=== PATIENT | female | born 1950 | race Caucasian/White ===

== ENCOUNTER 2016-08-18 14:22 | Outpatient (CLI) ==
[2012-11-25 12:50] VITALS: TEMP 98.5
[2013-11-07 18:28] VITALS: BMI 51.2
[2016-08-18 19:06] LABS: FLU INTERNAL QC INTERNAL QC VALID; RAPID FLU A NEGATIVE (NEGATIVE); RAPID FLU B NEGATIVE (NEGATIVE)
== END 2016-08-18 14:23 | disposition home or self-care (01) ==
LOC: LAB 14:22
PROVIDERS: ATTEND General Practice
DX: J02.9 Acute pharyngitis, unspecified (principal); R05 Cough; R50.9 Fever, unspecified
CPT/HCPCS: 36415; 84145; 87651; 87804; 87880

== ENCOUNTER 2016-08-28 08:43 | Outpatient (CLI) ==
[2012-11-25 12:50] VITALS: TEMP 98.5
[2013-11-07 18:28] VITALS: BMI 51.2
[2016-08-28 13:52] LABS: BASOPHILS % (AUTO) 0.6 % (0.0-3.0); EOSINOPHILS # (AUTO) 0.3 K/ul (0.0-0.7); EOSINOPHILS % (AUTO) 4.2 % (0.0-7.0); HEMATOCRIT 37.3 % (37.0-47.0); HEMOGLOBIN 12.3 g/dl (12.0-16.0); IMMATURE GRANULOCYTE % (AUTO) 0.6 % (0.0-5.0); LYMPHOCYTES % (AUTO) 31.6 (10.0-50.0); MEAN CORPUSCULAR HEMOGLOBIN 30.4 pg (27.0-31.0); MEAN CORPUSCULAR VOLUME 92.1 fl (81.0-99.0); MONOCYTES # (AUTO) 0.8 K/uL (0.4-2.0); MONOCYTES % (AUTO) 13.4 (0-10); NEUTROPHILS # (AUTO) 3.1 K/ul (2.0-6.9); NEUTROPHILS % (AUTO) 49.6; PLATELET COUNT 330 10^3/uL (140-440); RED BLOOD COUNT 4.05 10^6/ul (4.20-5.40); WHITE BLOOD COUNT 6.18 K/ul (4.6-10.2)
[2016-08-28 14:13] LABS: BILIRUBIN,URINE Negative (NEGATIVE); KETONES,URINE Negative (NEGATIVE); LEUKOCYTE ESTERASE ,URINE Negative (NEGATIVE); NITRITE,URINE Negative (NEGATIVE); PROTEIN,URINE Negative (NEGATIVE); URINE, BLOOD Negative (NEGATIVE)
[2016-08-28 14:15] LABS: ADD URINE MICROSCOPIC NO
[2016-08-28 14:21] LABS: ALBUMIN 3.2 g/dL (3.4-5.0); ALBUMIN/GLOBULIN RATIO 0.94; ANION GAP 13.9; BILIRUBIN,TOTAL 0.4 mg/dL (0.00-1.20); BUN/CREATININE RATIO 18.42; CALCIUM 9.2 mg/dL (8.2-10.2); CHOL/HDL RATIO 4.3 (4.5-5.5); CREATININE 0.76 mg/dL (0.60-1.30); POTASSIUM 3.9 mmol/L (3.5-5.10); TOTAL PROTEIN 6.6 g/dL (5.8-8.1)
== END 2016-08-28 08:44 | disposition home or self-care (01) ==
LOC: LAB 08:43
PROVIDERS: ATTEND General Practice
DX: E78.5 Hyperlipidemia, unspecified (principal); E88.81 Metabolic syndrome and other insulin resistance; I10 Essential (primary) hypertension; R73.03 Prediabetes; Z68.43 Body mass index [BMI] 50.0-59.9, adult; Z79.899 Other long term (current) drug therapy
CPT/HCPCS: 36415; 80053; 80061; 81001; 83036; 83525; 85025

== ENCOUNTER 2017-05-21 13:12 | Outpatient (CLI) ==
[2012-11-25 12:50] VITALS: TEMP 98.5
[2013-11-07 18:28] VITALS: BMI 51.2
[2017-05-21 13:32] LABS: BASOPHILS % (AUTO) 0.7 % (0.0-3.0); EOSINOPHILS # (AUTO) 0.3 K/ul (0.0-0.7); EOSINOPHILS % (AUTO) 5.3 % (0.0-7.0); HEMOGLOBIN 13.5 g/dl (12.0-16.0); IMMATURE GRANULOCYTE % (AUTO) 0.2 % (0.0-5.0); LYMPHOCYTES # (AUTO) 1.4 K/uL (0.60-3.4); LYMPHOCYTES % (AUTO) 24.5 (10.0-50.0); MEAN CORPUSCULAR HEMOGLOBIN 30.9 pg (27.0-31.0); MEAN CORPUSCULAR HGB CONC 33.8 (31.8-35.4); MEAN CORPUSCULAR VOLUME 91.5 fl (81.0-99.0); MONOCYTES # (AUTO) 0.5 K/uL (0.4-2.0); MONOCYTES % (AUTO) 8.3 (0-10); NEUTROPHILS # (AUTO) 3.5 K/ul (2.0-6.9); PLATELET COUNT 246 10^3/uL (140-440); RED BLOOD COUNT 4.37 10^6/ul (4.20-5.40); WHITE BLOOD COUNT 5.67 K/ul (4.6-10.2)
[2017-05-21 13:39] LABS: ADD URINE MICROSCOPIC NO; BILIRUBIN,URINE Negative (NEGATIVE); KETONES,URINE Negative (NEGATIVE); LEUKOCYTE ESTERASE ,URINE Negative (NEGATIVE); NITRITE,URINE Negative (NEGATIVE); PROTEIN,URINE Negative (NEGATIVE); URINE, BLOOD Negative (NEGATIVE)
[2017-05-21 14:22] LABS: ALBUMIN 3.4 g/dL (3.4-5.0); ALBUMIN/GLOBULIN RATIO 0.87; ANION GAP 12.8; BILIRUBIN,TOTAL 0.49 mg/dL (0.00-1.20); BUN/CREATININE RATIO 19.76; CALCIUM 9.5 mg/dL (8.2-10.2); CHOL/HDL RATIO 4.1 (4.5-5.5); CREATININE 0.86 mg/dL (0.60-1.30); POTASSIUM 4.8 mmol/L (3.5-5.10); TOTAL PROTEIN 7.3 g/dL (5.8-8.1)
== END 2017-05-21 13:13 | disposition home or self-care (01) ==
LOC: LAB 13:12
PROVIDERS: ATTEND General Practice
DX: E78.5 Hyperlipidemia, unspecified (principal); E88.81 Metabolic syndrome and other insulin resistance; I10 Essential (primary) hypertension; I73.9 Peripheral vascular disease, unspecified; R73.03 Prediabetes; Z79.899 Other long term (current) drug therapy
CPT/HCPCS: 36415; 80053; 80061; 81001; 83525; 84443; 85025

== ENCOUNTER 2017-09-10 16:03 | Outpatient (CLI) ==
[2012-11-25 12:50] VITALS: TEMP 98.5
[2013-11-07 18:28] VITALS: BMI 51.2
== END 2017-09-10 16:04 | disposition home or self-care (01) ==
LOC: FCC-LAB 16:03
PROVIDERS: ATTEND General Practice
DX: E78.5 Hyperlipidemia, unspecified (principal); I10 Essential (primary) hypertension; R73.03 Prediabetes; M54.9 Dorsalgia, unspecified
CPT/HCPCS: 81001

== ENCOUNTER 2017-11-05 10:34 | Outpatient (CLI) ==
[2012-11-25 12:50] VITALS: TEMP 98.5
[2013-11-07 18:28] VITALS: BMI 51.2
== END 2017-11-05 10:35 | disposition home or self-care (01) ==
LOC: FCC-LAB 10:34
PROVIDERS: ATTEND General Practice
DX: R73.03 Prediabetes (principal); I10 Essential (primary) hypertension; E78.5 Hyperlipidemia, unspecified; E88.81 Metabolic syndrome and other insulin resistance
CPT/HCPCS: 36415; 80053; 80061; 81001; 85025

== ENCOUNTER 2018-02-11 09:01 | Outpatient (CLI) ==
[2012-11-25 12:50] VITALS: TEMP 98.5
[2013-11-07 18:28] VITALS: BMI 51.2
== END 2018-02-11 09:02 | disposition home or self-care (01) ==
LOC: LAB 09:01
PROVIDERS: ATTEND Psychiatry & Neurology Psychiatry
DX: F33.1 Major depressive disorder, recurrent, moderate (principal); F41.9 Anxiety disorder, unspecified
CPT/HCPCS: 36415

== ENCOUNTER 2018-02-22 11:00 | Outpatient (RCR) ==
[2012-11-25 12:50] VITALS: TEMP 98.5
[2013-11-07 18:28] VITALS: BMI 51.2
== END 2018-02-22 23:59 ==
LOC: NEWBEG 11:00
PROVIDERS: ATTEND Psychiatry & Neurology Psychiatry
DX: F33.1 Major depressive disorder, recurrent, moderate (principal); F41.9 Anxiety disorder, unspecified
CPT/HCPCS: 90792; 90853; 99214

== ENCOUNTER 2018-03-18 13:50 | Emergency (ER) | payer OTHER ==
[2018-03-18 13:55] VITALS: BP 134/78; TEMP 97.9; BMI 49.4
--- NOTE | 2018-03-18 15:06 | CT ---
EXAM: CT of the head without contrast History: Head trauma. Technique: Multiplanar CT images through the head were obtained without the administration of IV con trast Findings: The visualized paranasal sinuses and mastoid air cells are clear in general. No acute poppy varial abnormalities. Intracranially the ventricular and cisternal spaces are normal in size, shape and configuration for a patient of this age. No dominant mass or midline shift. No hydrocephalous. No acute intracranial hemorrhage or abnormal extraaxial fluid collections. Small left frontal scalp hematoma. Impression: 1. No acute intracranial process. 2. Small left frontal scalp hematoma
--- NOTE | 2018-03-18 15:10 | CT ---
Exam: CT cervical spine without intravenous contrast. Comparison: None available. Reason for exam: Injury. FINDINGS: No obvious fracture in the cervical spine. There is multilevel degenerative disease with intervertebral body disc space height loss and osteophyte formation. Grade 1 anterior listhesis of C3 on C4 There is straightening of the cervical lordotic curve. The prevertebral soft tissues are within norm al limits. The dens appears intact. Impression: 1. No obvious fracture in the cervical spine. 2. Grade 1 anterolisthesis of C3 on C4. If clinical concern exists for stability, further evaluation may be performed. 3. Multilevel moderate to severe degenerative disease in the cervical spine with intervertebral body disc space height loss and osteophyte formation. If clinical concern exists for radiculopathy or my elopathy, MRI may be performed for further characterization.
--- NOTE | 2018-03-18 15:24 | DI ---
EXAM: Two views of the left forearm. History: Left forearm trauma. Findings: No acute fracture or dislocation. Joint spaces are relatively preserved. No abnormal poppy cifications or radiopaque foreign bodies. Impression: No acute osseous abnormality.
--- NOTE | 2018-03-18 15:24 | DI ---
EXAM: Four views of the right knee. History: Right knee trauma. Findings: No acute fracture or dislocation. Severe tricompartmental joint space narrowing with joao inal sclerosis and large osteophytes. No radiopaque foreign bodies. Impression: 1. No acute osseous abnormality. 2. Severe tricompartmental osteoarthritis
--- NOTE | 2018-03-18 16:34 | ED.PDOC ---
General ED Provider: Dr. NAATLIE GARCIA Chief Complaint: Fall Stated Complaint: FALL/ HEAD INJURY , KNEE PAIN , FOREARM PAIN Time Seen by Physician: 14:00 Mode of Arrival: Walk-In Information Source: Patient Exam Limitations: No limitations Primary [facility] Nursing and Triage Documentation Reviewed and Agree: Yes Does patient meet sepsis criteria?: No If yes, has appropriate treatment been initiated?: No System Inflammatory Response Syndrome: Not Applicable Sepsis Protocol: For patient's 13 years and over: Temp is 96.8 and below OR 101 and greater Pulse >90 BPM Resp >20/minute Acutely Altered Mental Status Are patient's symptoms suggestive of a new infection, such as: -Pneumonia -Skin, Soft Tissue -Endocarditis -UTI -Bone, Joint Infection -Implantable Device -Acute Abdominal Infection -Wound Infection -Meningitis -Blood Stream Catheter Infection -Unknown Trauma/Injury Complaint Exam - Trauma Complaint/Exam Location of Pain or Injury: Reports: Head, Neck, LUE (FOREARM), RLE (KNEE ) Mechanism of Injury: Reports: Fall Onset/Duration: 2 HRS Symptoms Are: Still present (SEE PHOTOS) Timing of Treatment: Immediate Initial Severity: Mild Current Severity: Mild Character: Reports: Aching Aggravating: Reports: None Associated Signs and Symptoms: Reports: Bruising (FOR HEAD SEE PHOTOS). Denies : LOC, Confusion, Memory loss, Lethargy, Vomiting, Bleeding, Swelling, Extremity disuse, Painful respiration, Hoarseness, Dysphagia, Hemoptysis, Significant blood loss Penetrating Injury Risk Factors: Reports: None Related Surgical History: Reports: None Nexus Low Risk Criteria: No post-midline CS tender, No evidence of intoxicat., No Altered LOC, No focal neuro deficit, No distracting injuries Glascow Coma Scale (see protocol): 15 Compartment Syndrome Risk Factors: Present: Pain Skin Findings: Present: Abrasion, Contusion Differential Diagnoses: Abrasion, Contusions, Fracture, Sprain, Strain Review of Systems - Review Of Systems Constitutional: Reports: No symptoms Eyes: Reports: No symptoms Ears, Nose, Mouth, Throat: Reports: No symptoms Respiratory: Reports: No symptoms Cardiac: Reports: No symptoms GI: Reports: No symptoms : Reports: No symptoms Musculoskeletal: Reports: No symptoms Skin: Reports: No symptoms Neurological: Reports: No symptoms Endocrine: Reports: No symptoms Hematologic/Lymphatic: Reports: No symptoms All Other Systems: Reviewed and Negative Past Medical History - Past Medical History Previously Healthy: Yes Endocrine: Reports: None Cardiovascular: Reports: None Respiratory: Reports: None Hematological: Reports: None Gastrointestinal: Reports: None Genitourinary: Reports: None Neuro/Psych: Reports: None Musculoskeletal: Reports: None Cancer: Reports: None Last Menstrual Period: n/a - Surgical History General Surgical History: Reports: None - Family History Family History: Reports: None - Social History Smoking Status: Former smoker Hx Substance Use: No Alcohol Screening: None Physical Exam - Physical Exam Appearance: Well-appearing, No pain distress, Well-nourished Eyes: MEKHI, EOMI, Conjunctiva clear ENT: Ears normal, Nose normal, Oropharynx normal Respiratory: Airway patent, Breath sounds clear, Breath sounds equal, Respirations nonlabored Cardiovascular: RRR, Pulses normal, No rub, No murmur GI/: Soft, Nontender, No masses, Bowel sounds normal, No Organomegaly Musculoskeletal: Normal strength, ROM intact, No edema, No calf tenderness Skin: Warm, Dry (CONTUSION FOR HEAD , ABRASION LEFT FOREARM) Neurological: Sensation intact, Motor intact, Reflexes intact, Cranial nerves intact, Alert, Oriented Psychiatric: Affect appropriate, Mood appropriate Interpretation - Radiology Interpretation Radiology Interpretation By: Radiologist Radiology Results: No acute changes Critical Care Note - Critical Care Note Total Time (mins): 0 Course - Course Orders, Labs, Meds: Orders Category Date Time Status CT CERVICAL SPINE W/O CONTRAST Stat RADS 03/18/18 14:[address] HEAD W/O CONTRAST Stat RADS 03/18/18 14:36 Completed FOREARM, LEFT 2 VIEWS Stat RADS 03/18/18 14:36 Completed KNEE, RIGHT 4 VIEWS Stat RADS 03/18/18 14:39 Completed Vital Signs: Temp Pulse Resp BP Pulse Ox 03/18/18 13:51 97.9 F 65 20 134/78 96 Departure - Departure Time of Disposition: 16:34 Disposition: HOME SELF-CARE Discharge Problem: Head injury Qualifiers: Encounter type: initial encounter Qualified Code(s): S09.90XA - Unspecified injury of head, initial encounter Sprain of forearm, left Qualifiers: Encounter type: initial encounter Qualified Code(s): S63.502A - Unspecified sprain of left wrist, initial encounter Sprain of right knee Qualifiers: Encounter type: initial encounter Involved ligament of knee: unspecified ligament Qualified Code(s): S83.91XA - Sprain of unspecified site of right knee , initial encounter Instructions: Head Injury (ED), Contusion in Adults (ED) Condition: Good Pt referred to PMD for follow-up: No IPMP verified?: No Additional Instructions: Please call your Family Physician as soon as possible to schedule a follow-up appointment. Allergies/Adverse Reactions: Allergies bacitracin [From Neosporin ([id number])] Adverse Reaction (Verified 03/18/18 13:55) bacitracin zinc [From Neosporin ([id number])] Adverse Reaction (Verified 13:55) Latex, Natural Rubber Adverse Reaction (Verified 03/18/18 13:55) neomycin sulfate [From Neosporin ([id number])] Adverse Reaction (Verified 13:55) polymyxin B [From Neosporin ([id number])] Adverse Reaction (Verified 13:55) Home Medications: Ambulatory Orders Alprazolam [Xanax] 0.5 mg PO BID 11/25/12 Imipramine HCl [Tofranil] 200 mg PO BEDTIME 11/25/12 Bupropion HCl [Wellbutrin Xl] 300 mg PO DAILY 03/18/18 Triamcinolone Acetonide [Kenalog 0.1%] 1 applic TP DIRECTED 03/18/18
== END 2018-03-18 16:43 | disposition home or self-care (01) ==
LOC: ED 13:50
DX: S00.83XA Contusion of other part of head, initial encounter (principal); S63.502A Unspecified sprain of left wrist, initial encounter; S83.91XA Sprain of unspecified site of right knee, initial encounter; M54.2 Cervicalgia; S50.812A Abrasion of left forearm, initial encounter; W19.XXXA Unspecified fall, initial encounter
CPT/HCPCS: 99283

== ENCOUNTER 2018-03-22 11:00 | Outpatient (RCR) | payer OTHER ==
[2012-11-25 12:50] VITALS: TEMP 98.5
[2017-05-21 13:20] VITALS: BMI 51.2
== END 2018-03-24 23:59 ==
LOC: NEWBEG 11:00
PROVIDERS: ATTEND Psychiatry & Neurology Psychiatry
DX: F33.1 Major depressive disorder, recurrent, moderate (principal); F41.9 Anxiety disorder, unspecified
CPT/HCPCS: 90853; 99214

== ENCOUNTER 2018-04-22 10:00 | Outpatient (RCR) ==
[2012-11-25 12:50] VITALS: TEMP 98.5
== END 2018-04-24 23:59 ==
LOC: NEWBEG 10:00
PROVIDERS: ATTEND Psychiatry & Neurology Psychiatry
DX: F33.1 Major depressive disorder, recurrent, moderate (principal); F41.9 Anxiety disorder, unspecified
CPT/HCPCS: 90853; 99213

== ENCOUNTER 2018-06-21 10:00 | Outpatient (RCR) ==
[2012-11-25 12:50] VITALS: TEMP 98.5
== END 2018-06-24 23:59 ==
LOC: NEWBEG 10:00
PROVIDERS: ATTEND Psychiatry & Neurology Psychiatry
DX: F33.1 Major depressive disorder, recurrent, moderate (principal); F41.9 Anxiety disorder, unspecified
CPT/HCPCS: 90853; 99213; 99214

== ENCOUNTER 2018-07-24 10:00 | Outpatient (RCR) ==
[2012-11-25 12:50] VITALS: TEMP 98.5
== END 2018-07-25 23:59 ==
LOC: NEWBEG 10:00
PROVIDERS: ATTEND Psychiatry & Neurology Psychiatry
DX: F33.1 Major depressive disorder, recurrent, moderate (principal); F41.9 Anxiety disorder, unspecified; F43.10 Post-traumatic stress disorder, unspecified
CPT/HCPCS: 90853; 99213

== ENCOUNTER 2018-08-21 10:00 | Outpatient (RCR) ==
[2012-11-25 12:50] VITALS: TEMP 98.5
== END 2018-08-22 23:59 ==
LOC: NEWBEG 10:00
PROVIDERS: ATTEND Psychiatry & Neurology Psychiatry
DX: F33.1 Major depressive disorder, recurrent, moderate (principal); F41.9 Anxiety disorder, unspecified; F43.10 Post-traumatic stress disorder, unspecified
CPT/HCPCS: 90853; 99213

== ENCOUNTER 2018-09-20 10:00 | Outpatient (RCR) ==
[2012-11-25 12:50] VITALS: TEMP 98.5
== END 2018-09-22 23:59 ==
LOC: NEWBEG 10:00
PROVIDERS: ATTEND Psychiatry & Neurology Psychiatry
DX: F33.1 Major depressive disorder, recurrent, moderate (principal); F41.9 Anxiety disorder, unspecified; F43.10 Post-traumatic stress disorder, unspecified
CPT/HCPCS: 90853; 99213

== ENCOUNTER 2018-10-16 10:00 | Outpatient (RCR) ==
[2012-11-25 12:50] VITALS: TEMP 98.5
== END 2018-10-22 23:59 ==
LOC: NEWBEG 10:00
PROVIDERS: ATTEND Psychiatry & Neurology Psychiatry
DX: F33.1 Major depressive disorder, recurrent, moderate (principal); F41.9 Anxiety disorder, unspecified; F43.10 Post-traumatic stress disorder, unspecified
CPT/HCPCS: 90853; 99213

== ENCOUNTER 2018-11-22 10:00 | Outpatient (RCR) ==
[2012-11-25 12:50] VITALS: TEMP 98.5
== END 2018-11-22 23:59 ==
LOC: NEWBEG 10:00
PROVIDERS: ATTEND Psychiatry & Neurology Psychiatry
DX: F33.1 Major depressive disorder, recurrent, moderate (principal); F41.9 Anxiety disorder, unspecified; F43.10 Post-traumatic stress disorder, unspecified
CPT/HCPCS: 90853; 99213

== ENCOUNTER 2019-02-21 10:00 | Outpatient (RCR) | payer OTHER ==
[2012-11-25 12:50] VITALS: TEMP 98.5
== END 2019-02-22 23:59 ==
LOC: NEWBEG 10:00
PROVIDERS: ATTEND Psychiatry & Neurology Psychiatry
DX: F33.1 Major depressive disorder, recurrent, moderate (principal); F41.9 Anxiety disorder, unspecified; F43.10 Post-traumatic stress disorder, unspecified
CPT/HCPCS: 90853; 99213